=== PATIENT | female | born 1975 | race Hispanic/Latino ===

== ENCOUNTER 2022-07-10 16:32 | Emergency (ER) | payer SELFPAY ==
[~2022-07-10] VITALS: Ht 157.5 cm; Wt 62.6 kg
[2022-07-10] MEDS ORDERED: DONNATAL/LIDOCAINE/MAALOX 30 ML SUSP PO ONE (17:15)
[2022-07-10] MEDS ORDERED: CARAFATE1 GM/10 ML PO (17:15)
[2022-07-10] MEDS ORDERED: BELLADONNA ALK/PHENOBARBITAL 5 ML UDC ONE (17:30)
[2022-07-10] MEDS ORDERED: MAGNESIUM/ALUMINUM/SIMETHICONE 30 ML UDC ONE (17:30)
[2022-07-10] MEDS ORDERED: LIDOCAINE VISC 2% SOLN 15 ML UDC ONE (17:30)
== END 2022-07-10 17:31 | disposition home or self-care (01) ==
LOC: ER 16:39
DX: R11.0 Nausea (principal); K29.70 Gastritis, unspecified, without bleeding; R10.13 Epigastric pain; K21.9 Gastro-esophageal reflux disease without esophagitis
CPT/HCPCS: 99282